=== PATIENT | male | born 1980 | race Two or more races ===

== ENCOUNTER 2020-03-14 06:50 | Day surgery (SDC) | payer MEDICAID ==
[~2020-03-14] VITALS: Ht 182.9 cm; Wt 124.7 kg
[~2020-03-14 06:50] MED LIST: CYCL5TAB PO; GLYB1.257 PO; IBUP800T24 PO; LISI-648 PO; METF-370 PO; METO25TA93 PO; SIMV10TA84 PO; TRAM50TA2 PO
[2020-03-14] MEDS ORDERED: LIDOCAINE 2%HCL (LOCAL ANESTH.) INJ 20ML MDV ONE (07:12)
[2020-03-14] MEDS ORDERED: fentaNYL CITRATE 100 MCG/2 ML VL ONE (07:52)
[2020-03-14] MEDS ORDERED: MIDAZOLAM HCL 1MG/1ML-2 ML VIAL ONE (07:52)
[2020-03-14] MEDS ORDERED: ACETAMINOPHEN 500 MG TAB PO PRN (08:15)
[2020-03-14] MEDS ORDERED: HYDROcodone-ACET 5/325MG TAB PO PRN (08:15)
== END 2020-03-14 10:34 | disposition home or self-care (01) ==
LOC: CATH 06:50
PROVIDERS: ATTEND Internal Medicine Cardiovascular Disease
DX: R94.39 Abnormal result of other cardiovascular function study (principal); E11.9 Type 2 diabetes mellitus without complications; I10 Essential (primary) hypertension; E78.5 Hyperlipidemia, unspecified; E66.9 Obesity, unspecified; Z87.891 Personal history of nicotine dependence; Z79.84 Long term (current) use of oral hypoglycemic drugs; Z79.899 Other long term (current) drug therapy; Z20.828 Contact with and (suspected) exposure to other viral communicable diseases; E78.00 Pure hypercholesterolemia, unspecified; Z68.37 Body mass index [BMI] 37.0-37.9, adult
CPT/HCPCS: 93458; C1769; C1887; C1894; J1644; J2250; J3010; J7030; U0003; 99152

== ENCOUNTER 2022-11-30 00:41 | Emergency (ER) | payer MEDICAID, OTHER ==
[~2022-11-30 00:41] MED LIST changes: +CYCL-837 PO; -CYCL5TAB PO; +IBUP-1456 PO; -IBUP800T24 PO; -LISI-648 PO; +LISI10TA34 PO; +SIMV10TA20 PO; -SIMV10TA84 PO
[2022-11-30 01:59] VITALS: BP 103/52
== END 2022-11-30 06:50 | disposition left against medical advice (07) ==
LOC: ER 00:41
DX: S00.511A Abrasion of lip, initial encounter (principal); Z53.21 Procedure and treatment not carried out due to patient leaving prior to being seen by health care provider; X58.XXXA Exposure to other specified factors, initial encounter; Y93.89 Activity, other specified; Y92.89 Other specified places as the place of occurrence of the external cause; Y99.8 Other external cause status